=== PATIENT | male | born 1990 ===

== ENCOUNTER 2025-02-06 04:48 | Day surgery (SDC) | payer OTHER ==
[2025-01-31 13:06] VITALS: BP 118/76
[~2025-02-06] VITALS: Ht 167.6 cm; Wt 124.7 kg
[~2025-02-06 04:48] MED LIST: ADDERALL 10 MG10 MG; ALLEGRA ALLERGY60 MG; BUPROPION XL150 MG PO; LIPITOR40 M1; NIFEDIPINE20 MG
[2025-02-06] MEDS ORDERED: CEFAZOLIN SODIUM 1,000 MG VIAL ONE (09:11)
[2025-02-06] MEDS ORDERED: TRIAMCINOLONE ACETONIDE 40 MG/ML VIAL ONE (09:56)
== END 2025-02-06 11:40 | disposition home or self-care (01) ==
LOC: CIR.AMB 04:48
PROVIDERS: ATTEND Surgery Surgery of the Hand
DX: M65.841 Other synovitis and tenosynovitis, right hand (principal); Z91.013 Allergy to seafood